=== PATIENT | female | born 1985 ===

== ENCOUNTER 2017-09-19 07:30 | Inpatient (IN) | payer OTHER ==
[~2017-09-19] VITALS: Ht 157.5 cm; Wt 3.6 kg
[~2017-09-19 07:30] MED LIST: PERCOCET 5/3251 TAB PO; SURFAK240 M1 PO
[2017-09-23] MEDS ORDERED: AMPICILLIN TRI500 MG PO (07:45)
== END 2017-09-25 16:17 | disposition home or self-care (01) | DRG 766 ==
LOC: OB/GYN 09-23 07:00 → O/R 09-23 07:15 → OB/GYN 09-23 07:30
PROVIDERS: Obstetrics & Gynecology
PROC: 0UL70ZZ Occlusion of Bilateral Fallopian Tubes, Open Approach (ICD-10-PCS; 2017-09-23)
PROC: 4A1HXCZ Monitoring of Products of Conception, Cardiac Rate, External Approach (ICD-10-PCS; 2017-09-23)
PROC: 10D00Z1 Extraction of Products of Conception, Low, Open Approach (ICD-10-PCS; principal; 2017-09-23 07:00)
DX: O99.824 Streptococcus B carrier state complicating childbirth (principal); Z3A.39 39 weeks gestation of pregnancy; Z37.0 Single live birth; Z30.2 Encounter for sterilization